=== PATIENT | male | born 1995 | race Two or more races ===

== ENCOUNTER 2021-10-27 22:05 | Emergency (ER) | payer BC ==
[~2021-10-27] VITALS: Ht 170.2 cm; Wt 150.0 kg
[2021-10-27 22:42] VITALS: BP 132/73
[2021-10-28] MEDS ORDERED: DexAMETHasone SOD PHOS 10MG/1ML VIAL INJ IM ONE (01:30)
[2021-10-28] MEDS ORDERED: diphenhdrAMINE HCL 25 MG CAP PO ONE (01:30)
[2021-10-28] MEDS ORDERED: PRED20TA2 PO (02:15)
[2021-10-28] MEDS ORDERED: DIPH25CA66 PO (02:15)
== END 2021-10-28 02:19 | disposition home or self-care (01) ==
LOC: ER 22:05
DX: S10.16XA Insect bite (nonvenomous) of throat, initial encounter (principal); W57.XXXA Bitten or stung by nonvenomous insect and other nonvenomous arthropods, initial encounter; Y93.89 Activity, other specified; Y92.89 Other specified places as the place of occurrence of the external cause; Y99.8 Other external cause status; Y93.9 Activity, unspecified
CPT/HCPCS: 96372; 99283; J1100